=== PATIENT | female | born 1990 | race Two or more races ===

== ENCOUNTER → 2017-03-06 | Outpatient (CLI) | payer MEDICAID, OTHER ==
[~2017-03-06] MED LIST: /ONDA4TA OR; CLAR1TAB2 PO; POTASSIUM OR
[2017-03-06 20:12] LABS: BASO % 0.6 % (0.0-1.0); EOS # 0.4 K/mm3 (0.0-0.50); EOS % 5.7 % (0.0-3.0); LARGE UNSTAINED CELL # 0.1 K/mm3 (0.0-0.4); LYMPH # 2.5 K/mm3 (1.5-6.5); LYMPH % 33.8 % (24.0-44.0); MEAN CORPUSCULAR HEMOGLOBIN 28.5 pg (27.0-33.0); MEAN CORPUSCULAR HGB CONC 32.3 g/dl (32.0-36.5); MEAN CORPUSCULAR VOLUME 88.2 fl (80.0-96.0); MONO # 0.4 K/mm3 (0.0-0.8); MONO % 5.9 % (0.0-5.0); NEUTROPHILS # 3.7 K/mm3 (1.8-7.7); PLATELET COUNT, AUTOMATED 223 k/mm3 (150-450); RED CELL DISTRIBUTION WIDTH 14.1 % (11.5-14.5); WHITE BLOOD COUNT 7.1 K/mm3 (4.0-10.0)
[2017-03-08 11:32] LABS: HBsAg Prenatal NEGATIVE (NEGATIVE)
== END ==
LOC: M SMT 15:19
PROVIDERS: ATTEND Advanced Practice Midwife
DX: Z34.81 Encounter for supervision of other normal pregnancy, first trimester (principal)

== ENCOUNTER → 2017-03-28 | Outpatient (CLI) | payer MEDICAID, OTHER | LOC: M SMT 14:53 | PROVIDERS: ATTEND Advanced Practice Midwife | DX: Z34.81 Encounter for supervision of other normal pregnancy, first trimester (principal) ==

== ENCOUNTER → 2017-03-31 | Outpatient (CLI) | payer MEDICAID, OTHER | LOC: M LRY 13:00 | PROVIDERS: ATTEND Advanced Practice Midwife | DX: Z34.81 Encounter for supervision of other normal pregnancy, first trimester (principal) ==

== ENCOUNTER 2017-04-05 15:17 | Day surgery (SDC) | payer OTHER ==
[~2017-04-05] VITALS: Ht 160 cm; Wt 71.5 kg
[~2017-04-05 15:17] MED LIST changes: -CLAR1TAB2 PO
[2017-04-05] MEDS ORDERED: LR 1,000 ML IV ONE (16:15)
[2017-04-05] MEDS ORDERED: CLAR1TAB2 PO (17:31)
[2017-04-05] MEDS ORDERED: LIDOCAINE 1% SDV INJ 30 ML VIAL As Ordered ONE (21:29)
[2017-04-05] MEDS ORDERED: PROPOFOL 200 MG/20 ML VIAL As Ordered ONE (22:16)
[2017-04-05] MEDS ORDERED: fentaNYL 100 MCG/2 ML INJECTION (J3010) As Ordered ONE (22:16)
[2017-04-05] MEDS ORDERED: MIDAZOLAM INJ 2 MG/2 ML VIAL (J2250) As Ordered ONE (22:16)
[2017-04-05] MEDS ORDERED: SILVER NITRATE APPLICATOR As Ordered ONE ×2 (22:37→23:02)
[2017-04-05] MEDS ORDERED: ONDANSETRON 4MG/2ML VIAL (J2405) IV PRN (23:00)
[2017-04-05] MEDS ORDERED: LR 1,000 ML IV SCH (23:00)
[2017-04-05] MEDS ORDERED: fentaNYL 100 MCG/2 ML INJECTION (J3010) IV PRN (23:00)
[2017-04-05] MEDS ORDERED: PERCOCET 5MG/325MG TAB PO PRN (23:15)
[2017-04-05 23:30] VITALS: BP 125/75
[2017-04-06] VITALS: BP 101/55
[2017-04-06] MEDS: KETOROLAC 30 MG/ML VIAL (J1885) IV SCH ×2 (00:29→06:18)
[2017-04-06 01:00] VITALS: BP 111/71
[2017-04-06 02:00] VITALS: BP 99/54
[2017-04-06 03:00] VITALS: BP 102/57
[2017-04-06] MEDS ORDERED: ACETAMINOPHEN 500 MG TAB PO PRN (03:45)
[2017-04-06 04:00] VITALS: BP 105/51
[2017-04-06 08:00] VITALS: BP 134/64
--- NOTE | 2017-04-06 11:50 | RO ---
DATE OF PROCEDURE: 04/05/2017 PREPROCEDURE DIAGNOSIS: Anembryonic gestation. POSTPROCEDURE DIAGNOSIS: Anembryonic gestation. PROCEDURE: Dilation and curettage. SURGEON: Alisia Chauhan MD BUSHEL GIRL: None. ANESTHESIA: IV sedation with paracervical block. IV FLUIDS: 300 mL of lactated Ringer solution. URINE OUTPUT: Undetermined. ESTIMATED BLOOD LOSS: 100 mL. OPERATIVE FINDINGS: The patient sounded to 11 cm, moderate amount of tissue obtained from dilation and curettage. SPECIMENS: Intrauterine curettings. PREOPERATIVE ANTIBIOTICS: None. DESCRIPTION OF OPERATION: After informed consent was obtained and written consent was reviewed, the patient was brought to the operating room where IV sedation was obtained. She was then placed in the lithotomy position, and was prepped and draped in a normal sterile fashion. A time out in the operating room was then performed identifying the patient, procedure to be performed, as well as drug allergies. A bivalve speculum was then placed revealing the cervix. Paracervical block was then performed using 1% Lidocaine, total 7 mL. The anterior lip of the cervix was then grasped with a single tooth tenaculum. The uterus then sounded to 11 cm, followed by sequential dilation using Hanks dilators. A #10 suction curette was then advanced into the cervical os to the level of the fundus. This was attached to suction. Suction was deployed. The uterus was curetted in a 360 degrees fashion with moderate amounts of tissue obtained on three different passes. The suction curette was then removed. A sharp curette was then advanced into the cervical os. The uterus was once again curetted in a 360 degrees fashion with just minimal amounts of tissue obtained. A final pass using the suction curette was then performed, productive of only small amounts of blood. The instruments were then removed from the patient's vagina. The single toothed tenaculum was removed. Silver nitrate was applied the tenaculum sites for hemostasis. The speculum was then removed. The patient was then taken out of lithotomy position and taken to recovery in stable condition. Counts were correct.
== END 2017-04-06 08:37 | disposition home or self-care (01) ==
LOC: M SDC 15:17 → M PED 23:30 → M SDC 04-06 08:37
PROVIDERS: ATTEND Obstetrics & Gynecology
DX: O02.1 Missed abortion (principal)

== ENCOUNTER → 2017-09-16 | Outpatient (REF) | payer OTHER | LOC: M SFHCADAM 12:57 | DX: N92.0 Excessive and frequent menstruation with regular cycle (principal) ==

== ENCOUNTER → 2018-01-18 | Outpatient (CLI) | payer OTHER | LOC: M LRY 11:37 | DX: M25.561 Pain in right knee (principal) | CPT/HCPCS: 73564 ==

== ENCOUNTER → 2019-07-16 | Outpatient (CLI) | payer OTHER ==
[~2019-07-16] MED LIST changes: -/ONDA4TA OR; +CLAR1TAB2 PO; +ONDA-1 OR
[2019-07-16 18:11] LABS: BASO % 0.5 % (0.0-1.0); EOS # 0.4 10^3/uL (0.0-0.5); EOS % 4.2 % (0.0-3.0); HEMATOCRIT 37.2 % (36.0-47.0); HEMOGLOBIN 12.5 g/dl (12.0-15.5); LYMPH # 2.7 10^3/uL (1.5-5.0); LYMPH % 30.7 % (24.0-44.0); MEAN CORPUSCULAR HEMOGLOBIN 31.2 pg (27.0-33.0); MEAN CORPUSCULAR HGB CONC 33.6 g/dl (32.0-36.5); MEAN CORPUSCULAR VOLUME 92.8 fl (80.0-96.0); MONO # 0.5 10^3/uL (0.0-0.8); MONO % 6.1 % (0.0-5.0); NEUTROPHILS % 58.2 % (36.0-66.0); RED BLOOD COUNT 4.01 10^6/uL (4.00-5.40)
[2019-07-16 21:20] LABS: GC DNA AMPLIFICATION NEGATIVE (NEGATIVE)
[2019-07-17 06:57] LABS: CHLAMYDIA DNA AMPLIFICATION NEGATIVE (NEGATIVE)
[2019-07-17 06:57] LABS: WHITE BLOOD COUNT 8.6 10^3/uL (4.0-10.0)
[2019-07-17 10:42] LABS: HIV 1&2 SCREEN CENTAUR NEGATIVE (NEGATIVE); RUBELLA IgG QUALITATIVE IMMUNE (IMMUNE)
== END ==
LOC: M LRY 13:24
PROVIDERS: ATTEND Advanced Practice Midwife
DX: Z3A.08 8 weeks gestation of pregnancy (principal)

== ENCOUNTER → 2019-09-16 | Outpatient (CLI) | payer OTHER ==
--- NOTE | 2019-09-17 01:58 | REP ---
Clinical: Anatomical evaluation. Comparison: None . Findings: Examination demonstrates a single live intrauterine in transverse (head to maternal left) presentation. motion is identified by technologist. Placenta is noted right/fundal and grade zero without evidence for placenta previa or abruption. Amniotic fluid volume is normal. Cervix measures 3.8 cm in length and appears closed. No evidence for nuchal cord. Gestational age by LMP 17 weeks 5 days with DESMOND 02/19/2020 . Gestational age by current measurements 17 weeks 4 days with DESMOND 02/20/2020 . FHR equals 153 beats per minute. BPD 3.8 cm 17 weeks 3 days HC 14.2 cm 17 weeks 3 days AC 11.4 cm 17 weeks 1 day FL 2.5 cm 17 weeks 5 days HL 2.6 cm 18 weeks 2 days HC/AC ratio 1.25 Estimated weight 193 grams ( 35th percentile). Anatomical assessment demonstrates normal structures including cranium, choroid plexus, cavum, cerebellum/posterior fossa, facial features, lungs, diaphragm, stomach, cord insertion/three-vessel cord, kidneys/bladder, and extremities. Impression: 1. Single live intrauterine demonstrating appropriate interval growth. 2. Limited evaluation of the heart/ventricular outflow tracts and spine. Remainder of the anatomical assessment is complete and normal. Electronically Signed by Edd Demarco MD 09/17/2019 01:50 A
== END ==
LOC: M RAD 11:39
PROVIDERS: ATTEND Obstetrics & Gynecology
DX: Z34.80 Encounter for supervision of other normal pregnancy, unspecified trimester (principal); Z3A.17 17 weeks gestation of pregnancy

== ENCOUNTER → 2019-10-08 | Outpatient (CLI) | payer MEDICAID, OTHER ==
--- NOTE | 2019-10-08 15:10 | REP ---
Clinical: Anatomical evaluation. Comparison: 09/16/2019 . Findings: Examination demonstrates a single live intrauterine in transverse (head to maternal left) presentation. motion is identified by technologist. Placenta is noted posterior and grade I without evidence for placenta previa or abruption. Amniotic fluid volume is normal. Cervix measures 3.5 cm in length and appears closed. No evidence for nuchal cord. Gestational age by LMP 20 weeks 6 days with DESMOND 02/19/2020 . Gestational age by current measurements 20 weeks 1 day with DESMOND 02/24/2020 . FHR equals 133 beats per minute. Estimated weight 346 grams ( 29th percentile). Anatomical assessment demonstrates normal structures including cranium, facial features, lungs, four-chamber heart/ventricular outflow tracts, diaphragm, stomach, cord insertion/three-vessel cord, kidneys/bladder, spine, and extremities. Impression: Single live intrauterine in transverse lie demonstrating appropriate interval growth. In conjunction with prior examination anatomical assessment is complete and normal.
== END ==
LOC: M WHC 13:31
PROVIDERS: ATTEND Advanced Practice Midwife
DX: Z34.92 Encounter for supervision of normal pregnancy, unspecified, second trimester (principal); Z3A.20 20 weeks gestation of pregnancy

== ENCOUNTER → 2019-11-20 | Outpatient (REF) | payer OTHER, MEDICAID ==
[2019-11-20 15:53] LABS: HEMATOCRIT 33.9 % (36.0-47.0); HEMOGLOBIN 11.3 g/dl (12.0-15.5); MEAN CORPUSCULAR HEMOGLOBIN 30.7 pg (27.0-33.0); MEAN CORPUSCULAR HGB CONC 33.3 g/dl (32.0-36.5); MEAN CORPUSCULAR VOLUME 92.1 fl (80.0-96.0); PLATELET COUNT, AUTOMATED 210 10^3/uL (150-450); RED BLOOD COUNT 3.68 10^6/uL (4.00-5.40); WHITE BLOOD COUNT 8.7 10^3/uL (4.0-10.0)
== END ==
LOC: M PLALAB 13:31
PROVIDERS: ATTEND Advanced Practice Midwife
DX: Z34.82 Encounter for supervision of other normal pregnancy, second trimester (principal)

== ENCOUNTER → 2019-11-26 | Outpatient (CLI) | payer OTHER, MEDICAID | LOC: M LAB 07:26 | PROVIDERS: ATTEND Advanced Practice Midwife | DX: O99.810 Abnormal glucose complicating pregnancy (principal); Z3A.00 Weeks of gestation of pregnancy not specified ==

== ENCOUNTER → 2020-01-22 | Outpatient (REF) | payer OTHER | LOC: M SFHCWAGY 18:30 | PROVIDERS: ATTEND Specialist | DX: Z34.83 Encounter for supervision of other normal pregnancy, third trimester (principal) ==

== ENCOUNTER 2020-02-26 08:52 | Inpatient (IN) | payer MEDICAID, OTHER ==
[~2020-02-26] VITALS: Ht 160 cm; Wt 95.6 kg
[2020-02-26] VITALS (18 sets, daily range): BP systolic 81–132; BP diastolic 51–85
[2020-02-26] MEDS: miSOPROStol 50 MCG 1/2 TAB (S0191) PO SCH ×3 (10:04→18:59)
[2020-02-26 10:07] LABS: HEMATOCRIT 33.9 % (36.0-47.0); HEMOGLOBIN 11.2 g/dl (12.0-15.5); MEAN CORPUSCULAR HEMOGLOBIN 29.2 pg (27.0-33.0); MEAN CORPUSCULAR VOLUME 88.3 fl (80.0-96.0); PLATELET COUNT, AUTOMATED 225 10^3/uL (150-450); RED BLOOD COUNT 3.84 10^6/uL (4.00-5.40)
[2020-02-26] MEDS ORDERED: ACET-907 PO (10:21)
[2020-02-26] MEDS ORDERED: TUMS500C PO (10:21)
[2020-02-26] MEDS ORDERED: PRENTAB9 PO (10:21)
--- NOTE | 2020-02-26 10:46 | HPE ---
DATE OF ADMISSION: Coty is 29-year-old 4, para 2-0-1-2 at 41 weeks' gestation, EDC of 02/19/2020 based on last period and confirmed by first trimester ultrasound. She presents to labor and delivery today for induction of labor due to post-term per consult with Dr. Cayden Delvalle. She reports some mild intermittent contractions. Denies vaginal bleeding and leakage of fluid. The fetus has been active. Her care was [facility] at [facility] in the first trimester. course has been uncomplicated. OBSTETRICAL HISTORY: April 2009, 40 weeks gestation, 6 pounds female spontaneous vaginal delivery. No complications. May 2011, 40 weeks gestation, 6 pounds 8 ounces male, spontaneous vaginal delivery. No complications. March 2017, 11 weeks gestation, D C for missed . OBSTETRIC LABS: A negative, antibody screen negative, syphilis negative, hepatitis B surface antigen negative. Hep C antibody negative, HIV negative, rubella immune, gonorrhea, chlamydia negative. 1-hour gestational diabetic screening 170. Her 3-hour glucose tolerance test was normal with a fasting of 93, 1-hour 166, 2-hour 133, 3-hour 118. Urine culture no growth. Group B strep culture negative.. PAST MEDICAL HISTORY: Noncontributory. SURGERIES: None. FAMILY HISTORY: Noncontributory. SOCIAL HISTORY: The patient is . She is a nonsmoker. She denies alcohol and drug use. No history of any sexually transmitted infections and she denies history of abuse physical, sexual and emotional. ALLERGIES: Seasonal, flower, cats, trees, grass. CURRENT MEDICATIONS: vitamins OBJECTIVE: Pulse 98, blood pressure (BP) is 125/85. heart rate is 130 with moderate variability, positive accelerations, negative decelerations. Contractions every 4-5 minutes, mild to palpation. Her abdomen is gravid, cephalic presentation. Estimated weight 7-1/2 to 8 pounds, Sterile vaginal exam: 2 cm dilated, 50% effaced, minus two station, posterior moderate texture. No show with the exam. ASSESSMENT: Interim at 41 weeks. heart rate category one. PLAN: Admit the patient to labor and delivery. Saline lock. Out of bed ad gee. Regular diet at this time. Routine laboratories. Plan to start misoprostol 50 mcg by mouth for cervical ripening. I did review risks, benefits and alternatives, all the patient and her 's questions have been answered. They desire to proceed with induction of labor. She has been verbally consented for emergency surgery, blood products. I do anticipate cervical ripening, active labor and a vaginal delivery.
[2020-02-26] MEDS ORDERED: CALCIUM CARBONATE 500 MG CHEW U/D PO PRN (17:15)
[2020-02-26] MEDS ORDERED: LR 1,000 ML IV SCH (22:32)
[2020-02-26] MEDS ORDERED: OXYTOCIN DRIP 30 UNITS in IV 1 EA IV SCH (22:45)
[2020-02-27] VITALS (38 sets, daily range): BP systolic 102–138; BP diastolic 53–83
[2020-02-27] MEDS ORDERED: LACTATED RINGER'S 1000 ML IV ONE (07:15)
[2020-02-27] MEDS ORDERED: FENTANYL 2MCG/ML ROPIVACAINE 0.2% IN 0.9% NACL 100ML IVBAG As Ordered ONE ×2 (07:17→07:19)
[2020-02-27] MEDS ORDERED: REFRIGERATOR IV KEYS XX PRN (08:45)
[2020-02-27] MEDS ORDERED: EPIDURAL/PCA KEYS XX PRN (08:45)
[2020-02-27] MEDS ORDERED: ONDANSETRON 4MG/2ML VIAL IV PRN ×2 (08:45→10:30)
[2020-02-27] MEDS ORDERED: EPIDURAL COMMENT XX SCH (08:45)
[2020-02-27] MEDS ORDERED: diphenhydrAMINE 50MG/ML VIAL (J1200) IV PRN (08:45)
[2020-02-27] MEDS ORDERED: NALOXONE INJ 0.4MG/1ML VIAL (J2310 PER 1MG) IV PRN (08:45)
[2020-02-27] MEDS ORDERED: LACTATED RINGER'S 1000 ML IV PRN (08:45)
[2020-02-27] MEDS ORDERED: FENTANYL/ROPIVACAINE/NACL BAG 100 ML EPIDURAL SCH (08:45)
[2020-02-27] MEDS ORDERED: ePHEDrine SULFATE 25 MG/5 ML(5MG/ML) SYRINGE IV PRN (08:45)
[2020-02-27] MEDS ORDERED: OXYTOCIN DRIP 30 UNITS in IV 1 EA IV SCH (10:27)
[2020-02-27] MEDS ORDERED: LR 1,000 ML IV SCH (10:27)
[2020-02-27] MEDS ORDERED: RHOGAM 300 MCG (1500 IU) INJ (J2790) IM SCH (10:30)
[2020-02-27] MEDS ORDERED: DIBUCAINE 1% OINTMENT 30GM TOP PRN (10:30)
[2020-02-27] MEDS ORDERED: IBUPROFEN 600MG TAB PO PRN (10:30)
[2020-02-27] MEDS ORDERED: DOCUSATE SODIUM 100 MG CAP PO PRN (10:30)
[2020-02-27] MEDS ORDERED: PROMETHAZINE 25 MG TAB PO PRN (10:30)
[2020-02-27] MEDS ORDERED: ACETAMINOPHEN 500 MG TAB PO PRN (10:30)
[2020-02-27] MEDS ORDERED: ACETAMINOPHEN TAB 650MG DOSE (2X325MG) PO PRN (10:30)
[2020-02-27] MEDS ORDERED: MEASLES,MUMPS,RUBELLA VACCINE INJ (MMR-II) (90707) SC SCH (10:30)
[2020-02-27] MEDS: PRENATAL VITAMINS CHEWABLE TABLET PO SCH (13:54)
[2020-02-28] MEDS: IBUPROFEN 800 MG TAB PO PRN ×2 (03:20→15:46)
[2020-02-28 06:00] VITALS: BP 106/58
[2020-02-28] MEDS: PRENATAL VITAMINS CHEWABLE TABLET PO SCH (07:24)
--- NOTE | 2020-02-28 07:50 | IPNPDOC ---
Text Note Date of Service The patient was seen on 02/28/20. NOTE PP#1 Feels well. Adequate pain management. States latch was much better overnight. Voiding VSS, afebrile, normotensive Breasts soft, nipples intact Fundus firm, NT, down 1 FB Lochia rubra light without odor PP #1 Routine care. Would like discharge if goes. Otherwise d/c in am VS,Fishbone, I+O VS, Fishbone, I+O Vital Signs Date Time Temp Pulse Resp B/P (MAP) Pulse Ox O2 Delivery O2 Flow Rate FiO2 02/28/20 06:00 97.9 88 18 106/58 (74) 98 Room Air I&O- Last 24 Hours up to 6 AM 02/28/20 06:00 Intake Total 3720 ml Output Total 1100 ml Balance 2620 ml Kerrie Corona [facility] Feb 28, 2020 07:50
[2020-02-28] MEDS ORDERED: RHOGAM 300 MCG (1500 IU) INJ (J2790) IM SCH (14:15)
[2020-02-28 18:15] VITALS: BP 127/61
== END 2020-02-28 19:50 | disposition home or self-care (01) | DRG 560 ==
LOC: M LDI 08:52 → M OBS 02-27 12:28
PROVIDERS: ADMIT Advanced Practice Midwife; ATTEND Obstetrics & Gynecology
PROC: 3E0P7GC Introduction of Other Therapeutic Substance into Female Reproductive, Via Natural or Artificial Opening (ICD-10-PCS; 2020-02-26)
PROC: 10E0XZZ Delivery of Products of Conception, External Approach (ICD-10-PCS; principal; 2020-02-27)
DX: O48.0 Post-term pregnancy (principal); Z3A.41 41 weeks gestation of pregnancy; Z37.0 Single live birth

== ENCOUNTER → 2020-11-06 | Outpatient (CLI) | payer OTHER, MEDICAID ==
[~2020-11-06] MED LIST changes: +ACET-907 PO; +PRENTAB9 PO; +TUMS500C PO
[2020-11-06 13:07] LABS: HEMATOCRIT 38.6 % (36.0-47.0); HEMOGLOBIN 12.3 g/dl (12.0-15.5); MEAN CORPUSCULAR HEMOGLOBIN 29.6 pg (27.0-33.0); MEAN CORPUSCULAR HGB CONC 31.9 g/dl (32.0-36.5); PLATELET COUNT, AUTOMATED 229 10^3/uL (150-450); RED BLOOD COUNT 4.15 10^6/uL (4.00-5.40); WHITE BLOOD COUNT 6.3 10^3/uL (4.0-10.0)
[2020-11-06 13:28] LABS: ALBUMIN 3.9 GM/DL (3.2-5.2); ALT/SGPT 21 U/L (12-78); BILIRUBIN,TOTAL 0.2 MG/DL (0.2-1.0); BLOOD UREA NITROGEN 8 MG/DL (7-18); CALCIUM LEVEL 9.2 MG/DL (8.5-10.1); CARBON DIOXIDE LEVEL 26 MEQ/L (21-32); CHLORIDE LEVEL 110 MEQ/L (98-107); CREATININE FOR GFR 0.56 MG/DL (0.55-1.30); FERRITIN 32 NG/ML (8-252); FREE T4 0.94 NG/DL (0.76-1.46); GLOMERULAR FILTRATION RATE > 60.0 (>60); GLUCOSE, FASTING 96 MG/DL (70-100); SODIUM LEVEL 140 MEQ/L (136-145); THYROID STIMULATING HORMONE 0.998 uIU/ML (0.358-3.740); TOTAL PROTEIN 6.7 GM/DL (6.4-8.2)
[2020-11-06 17:59] LABS: TOTAL 25(OH) VITAMIN D 33.4 NG/ML (30.0-100.0)
== END ==
LOC: M WUC 09:02
PROVIDERS: ATTEND Family Medicine
DX: Z00.00 Encounter for general adult medical examination without abnormal findings (principal); L65.9 Nonscarring hair loss, unspecified

== ENCOUNTER → 2023-07-10 | Outpatient (REF) | payer OTHER, MEDICAID ==
[2023-07-10 17:16] LABS: BASO # 0.1 10^3/uL (0.0-0.2); BASO % 0.7 % (0.0-1.0); EOS # 0.2 10^3/uL (0.0-0.5); EOS % 3.1 % (0.0-3.0); HEMATOCRIT 38.5 % (36.0-47.0); HEMOGLOBIN 12.6 g/dl (12.0-15.5); LYMPH # 3.1 10^3/uL (1.5-5.0); LYMPH % 45.3 % (24.0-44.0); MEAN CORPUSCULAR HEMOGLOBIN 30.1 pg (27.0-33.0); MEAN CORPUSCULAR HGB CONC 32.7 g/dl (32.0-36.5); MEAN CORPUSCULAR VOLUME 91.9 fl (80.0-96.0); MONO # 0.4 10^3/uL (0.0-0.8); MONO % 6.5 % (2.0-8.0); NEUTROPHILS % 44.3 % (36.0-66.0); PLATELET COUNT, AUTOMATED 240 10^3/uL (150-450); RED BLOOD COUNT 4.19 10^6/uL (4.00-5.40); WHITE BLOOD COUNT 6.7 10^3/uL (4.0-10.0)
[2023-07-10 17:33] LABS: ALBUMIN 3.8 G/DL (3.2-5.2); ALKALINE PHOSPHATASE 70 U/L (46-116); ALT/SGPT 15 U/L (7.0-40); AST/SGOT 9 U/L (<34); BILIRUBIN,TOTAL 0.4 MG/DL (0.3-1.2); BLOOD UREA NITROGEN 8 MG/DL (9-23); CALCIUM LEVEL 9.1 MG/DL (8.5-10.1); CARBON DIOXIDE LEVEL 24 MMOL/L (20-31); CHLORIDE LEVEL 107 MMOL/L (98-107); CHOLESTEROL LEVEL 175 MG/DL (<200); CHOLESTEROL RISK RATIO 3.25 (<5); CREATININE FOR GFR 0.55 MG/DL (0.55-1.30); GLOMERULAR FILTRATION RATE > 60.0 (>60); GLUCOSE, FASTING 77 MG/DL (60-100); HDL CHOLESTEROL 53.8 MG/DL (>40); LDL CHOLESTEROL 101.8 MG/DL (<100); NON-HDL-C 121.2 MG/DL; POTASSIUM SERUM 4.2 MMOL/L (3.5-5.1); SODIUM LEVEL 140 MMOL/L (136-145); TOTAL PROTEIN 6.7 G/DL (5.7-8.2); TRIGLYCERIDES LEVEL 97 MG/DL (<150)
[2023-07-10 17:34] LABS: THYROID STIMULATING HORMONE 1.724 uIU/ML (0.55-4.78)
== END ==
LOC: M SFHCADAM 14:05
PROVIDERS: ATTEND Family Medicine
DX: Z12.4 Encounter for screening for malignant neoplasm of cervix (principal)

== ENCOUNTER → 2024-01-03 | Outpatient (REF) | payer OTHER, MEDICAID | LOC: M SFHCADAM 14:50 | PROVIDERS: ATTEND Family Medicine | DX: Z00.00 Encounter for general adult medical examination without abnormal findings (principal); Z53.9 Procedure and treatment not carried out, unspecified reason ==

== ENCOUNTER → 2024-01-04 | Outpatient (REF) | payer OTHER, MEDICAID ==
[2024-01-04 14:15] LABS: BASO % 0.5 % (0.0-1.0); EOS # 0.1 10^3/uL (0.0-0.5); HEMOGLOBIN 12.5 g/dl (12.0-15.5); LYMPH # 2.5 10^3/uL (1.5-5.0); LYMPH % 42.2 % (24.0-44.0); MEAN CORPUSCULAR HEMOGLOBIN 30.3 pg (27.0-33.0); MEAN CORPUSCULAR HGB CONC 32.9 g/dl (32.0-36.5); MONO # 0.5 10^3/uL (0.0-0.8); MONO % 7.8 % (2.0-8.0); NEUTROPHILS # 2.8 10^3/uL (1.5-8.5); NEUTROPHILS % 47.3 % (36.0-66.0); PLATELET COUNT, AUTOMATED 225 10^3/uL (150-450); RED BLOOD COUNT 4.13 10^6/uL (4.00-5.40); WHITE BLOOD COUNT 5.9 10^3/uL (4.0-10.0)
[2024-01-04 14:34] LABS: ALBUMIN 3.8 G/DL (3.2-5.2); ALKALINE PHOSPHATASE 62 U/L (46-116); ALT/SGPT 19 U/L (7.0-40); AST/SGOT 11 U/L (<34); BILIRUBIN,TOTAL 0.4 MG/DL (0.3-1.2); BLOOD UREA NITROGEN 12 MG/DL (9-23); CALCIUM LEVEL 9.1 MG/DL (8.5-10.1); CARBON DIOXIDE LEVEL 23 MMOL/L (20-31); CHLORIDE LEVEL 108 MMOL/L (98-107); CHOLESTEROL LEVEL 130 MG/DL (<200); CHOLESTEROL RISK RATIO 2.81 (<5); GLOMERULAR FILTRATION RATE > 60.0 (>60); GLUCOSE, FASTING 93 MG/DL (60-100); HDL CHOLESTEROL 46.2 MG/DL (>40); LDL CHOLESTEROL 70.6 MG/DL (<100); NON-HDL-C 83.8 MG/DL; POTASSIUM SERUM 3.9 MMOL/L (3.5-5.1); SODIUM LEVEL 139 MMOL/L (136-145); TOTAL PROTEIN 6.4 G/DL (5.7-8.2); TRIGLYCERIDES LEVEL 66 MG/DL (<150)
== END ==
LOC: M LABWUC 12:51
PROVIDERS: ATTEND Family Medicine
DX: Z00.00 Encounter for general adult medical examination without abnormal findings (principal)

== ENCOUNTER 2024-07-10 03:49 | Emergency (ER) | payer MEDICAID, OTHER ==
[~2024-07-10] VITALS: Ht 160 cm; Wt 75.3 kg
[2024-07-10 03:54] VITALS: TEMP 98.1
[2024-07-10] MEDS ORDERED: BENZ200C70 PO (06:34)
[2024-07-10] MEDS ORDERED: FLUTISP (06:34)
[2024-07-10 06:35] VITALS: BP 112/67; O2SAT 99
== END 2024-07-10 06:46 | disposition home or self-care (01) ==
LOC: M ED 03:49
DX: R05.9 Cough, unspecified (principal); J30.9 Allergic rhinitis, unspecified; Z79.1 Long term (current) use of non-steroidal anti-inflammatories (NSAID); Z79.899 Other long term (current) drug therapy; Z91.048 Other nonmedicinal substance allergy status; Z91.02 Food additives allergy status

== ENCOUNTER → 2024-10-02 | Outpatient (REF) | payer OTHER ==
[~2024-10-02] MED LIST changes: +BENZ200C70 PO; +FLUTISP
== END ==
LOC: M SFHCADAM 10:37
PROVIDERS: ATTEND Family Medicine
DX: F32.A Depression, unspecified (principal)